=== PATIENT | male | born 1960 | race Caucasian/White ===

== ENCOUNTER 2018-11-05 11:20 | Observation (INO) | payer BC ==
[2018-11-05] MEDS ORDERED: NACHLORIDE 0.45% 1,000 ML IV SCH (12:00)
[2018-11-05] MEDS ORDERED: POLYETHYL GLY 3350 17 GM/DOSE PO PRN (12:00)
[2018-11-05] MEDS ORDERED: ONDANSETRON 4 MG (ODT) TAB PO PRN (12:00)
[2018-11-05] MEDS ORDERED: LOPERAMIDE HCL 2 MG CAPSULE PO PRN (12:00)
[2018-11-05] MEDS ORDERED: ACETAMINOPHEN 325 MG TABLET PO PRN (12:00)
[2018-11-05] MEDS ORDERED: DIPHENHYDRAMINE 25 MG TAB/CAP PO PRN (12:00)
[2018-11-05 12:35] LABS: Absolute Lymphocytes (CBC) 1.1 K/uL (0.7-4.9); Absolute Monocytes 1.1 K/uL (0.1-1.3); Absolute Neutrophil 12.5 K/uL (1.8-8.0); Basophils % 0.4 % (0-1.3); Hematocrit 40.2 % (39.6-49.0); Lymphocytes % 7.5 % (15.3-44.8); MPV 9.1 fL (7.6-11.3); Monocytes % 7.7 % (3.3-12.3); RBC Red Blood Cell Count 4.26 M/uL (4.33-5.43)
[2018-11-05] MEDS: ONDANSETRON 4 MG/2 ML VIAL IV PRN ×2 (12:41→18:29)
[2018-11-05] MEDS: METRONIDAZOLE 500mg IVPB 500 MG/100 ML BAG IV SCH ×2 (12:41→20:00)
[2018-11-05 12:44] LABS: Protime INR 1.13
[2018-11-05 12:50] VITALS: BMI 36.1
[2018-11-05 13:30] LABS: Bilirubin Direct 0.1 mg/dL (0-0.2); Bilirubin Total 0.6 mg/dL (0.2-1.0); Phosphorus 4.7 mg/dL (2.5-4.9); Potassium 3.9 mmol/L (3.5-5.1); Protein, Total 6.9 g/dL (6.4-8.2); Thyroid Stimulating Hormone 1.59 uIU/mL (0.360-3.740)
[2018-11-05 13:35] LABS: Blood Morphology Comment NOTED (NOT SEEN); Platelet Estimate ADEQ; Polychromasia 1+
[2018-11-05 14:41] LABS: Urine Appearance CLEAR; Urine Bilirubin NEGATIVE (NEG); Urine Blood NEGATIVE (NEG); Urine Color YELLOW; Urine Glucose NEGATIVE (NEG); Urine Protein NEGATIVE (NEG); Urine Specific Gravity 1.015 (1.005-1.030); Urine Urobilinogen 0.2 mg/dL (0.2-1.0)
--- NOTE | 2018-11-05 14:44 | RAD REPORT ---
EXAM DESCRIPTION: CT - Abdomen Pelvis Wo Contrast - 11/05/2018 2:21 pm CLINICAL HISTORY: Abdominal pain with vomiting COMPARISON: None TECHNIQUE: Computed axial tomography of the abdomen and pelvis was obtained. IV was not requested. O ral contrast was given. Coronal reconstructions performed. All CT scans are performed using dose optimization technique as appropriate and may include automated exposure control or mA/KV adjustment according to patient size. FINDINGS: The evaluation of solid organs and vessels is limited secondary to the lack of contrast a dministration. The liver, spleen, pancreas, and kidneys appear grossly normal. Hypertrophy of the adrenal glands. The appendix is normal. There is no evidence of diverticulitis. The wall of the sigmoid colon is moderately thickened. Mild thickening of the wall of the rectum, tra nsverse and descending colon. IMPRESSION: Mild to moderate colitis . Exam discussed with Dr. Mayen
[2018-11-05 14:47] LABS: Urine Microscopic Reflex NO UMIC
--- NOTE | 2018-11-05 14:48 | RAD REPORT ---
EXAM DESCRIPTION: Ochoa Álvarez (2 Views)11/05/2018 2:40 pm CLINICAL HISTORY: Abdominal pain COMPARISON: 2012 FINDINGS: The lungs appear clear of acute infiltrate. The heart is normal size Calcified granuloma is present within the left lower lobe IMPRESSION: No acute abnormalities displayed
[2018-11-05] MEDS ORDERED: POTASSIUM CL SA 10 MEQ TAB PO ONE (17:38)
[2018-11-05] MEDS: NA CHLORIDE 0.9% 1,000 ML IV SCH (18:01)
[2018-11-05] MEDS: HYDROMORPHONE HCL 1 MG/ML INJ IV PRN (19:59)
[2018-11-05] MEDS: CIPROFLOXACIN 400mg IV 400 MG/200 ML BAG IV SCH (20:00)
[2018-11-06 01:20] VITALS: O2SAT 95
[2018-11-06] MEDS: HYDROMORPHONE HCL 1 MG/ML INJ IV PRN ×2 (04:55→09:36)
--- NOTE | 2018-11-06 05:58 | EKG ---
Test Date: 2018-11-05 Test Time: 12:28:07 Service Dog Trainer: THOMAS MEASUREMENT RESULTS: Intervals: Rate: 73 CA: 210 QRSD: 140 QT: 444 QTc: 489 [place]: P: 72 CA: 210 QRS: 108 T: 50 INTERPRETIVE STATEMENTS: Sinus rhythm with 1st degree AV block Right bundle branch block Abnormal ECG No previous ECG available for comparison Electronically Signed On 11-06-18 05:57:59 CDT by Pierre Reardon
[2018-11-06 06:14] LABS: Absolute Monocytes 0.6 K/uL (0.1-1.3); Absolute Neutrophil 4.8 K/uL (1.8-8.0); Basophils % 0.8 % (0-1.3); Eosinophils % 2.2 % (0-4.4); Hematocrit 37.2 % (39.6-49.0); Lymphocytes % 15.5 % (15.3-44.8); MPV 9.1 fL (7.6-11.3)
[2018-11-06 06:32] LABS: Potassium 3.7 mmol/L (3.5-5.1)
[2018-11-06] MEDS ORDERED: ALBUTEROL SULFATE IN PRN (06:50)
[2018-11-06] MEDS ORDERED: IPRATROPIUM IN PRN (06:50)
[2018-11-06] MEDS ORDERED: lamoTRIgine 100 MG TAB PO SCH (09:00)
[2018-11-06] MEDS ORDERED: BISOPROLOL/HCTZ 5/6.25MG TAB PO SCH (09:00)
[2018-11-06] MEDS ORDERED: HCTZ PO SCH (09:00)
[2018-11-06] MEDS ORDERED: CITALOPRAM 10 MG TABLET PO SCH (09:00)
[2018-11-06] MEDS ORDERED: ENOXAPARIN 40 MG/0.4 ML SQ SCH (09:00)
[2018-11-06] MEDS ORDERED: MODAFINIL 100 MG TAB PO SCH (09:00)
[2018-11-06] MEDS ORDERED: BISOPROLOL FUMARATE PO SCH (09:00)
[2018-11-06] MEDS ORDERED: lamoTRIgine 25 MG TAB PO SCH (09:00)
[2018-11-06] MEDS ORDERED: POTASSIUM CL SA 10 MEQ TAB PO ONE (09:00)
[2018-11-06] MEDS: NA CHLORIDE 0.9% 1,000 ML IV SCH (09:22)
[2018-11-06] MEDS: CIPROFLOXACIN 400mg IV 400 MG/200 ML BAG IV SCH (09:22)
[2018-11-06] MEDS: METRONIDAZOLE 500mg IVPB 500 MG/100 ML BAG IV SCH (09:22)
--- NOTE | 2018-11-06 13:02 | P.DS ---
Admission Date: 11/05/18 Discharge Date: 11/06/18 Disposition: ROUTINE DISCHARGE Discharge Condition: FAIR Hospital Course: MR. MAYFIELD IS DOING GREAT. HE WANTS TO GO HOME. HIS LAB IS NORMAL NOW. C DIFF IS NEGATIVE. HE IS STABLE TO GO HOME. Vital Signs/Physical Exam: Temp Pulse Resp BP Pulse Ox 96.7 F L 77 16 120/51 L 91 11/06/18 08:00 11/06/18 09:20 11/06/18 08:00 11/06/18 09:20 11/06/18 08:00 Laboratory Data at Discharge: WBC 6.7 K/uL (4.3-10.9) D 11/06/18 05:40 Hgb 13.0 g/dL (13.6-17.9) L 11/06/18 05:40 Hct 37.2 % (39.6-49.0) L 11/06/18 05:40 Plt Count 204 K/uL (152-406) D 11/06/18 05:40 PT 13.3 SECONDS (9.5-12.5) H 11/05/18 12:15 INR 1.13 11/05/18 12:15 APTT 32.3 SECONDS (24.3-36.9) 11/05/18 12:15 Sodium 132 mmol/L (136-145) L 11/06/18 05:40 Potassium 3.7 mmol/L (3.5-5.1) 11/06/18 05:40 BUN 15 mg/dL (7-18) 11/06/18 05:40 Creatinine 1.19 mg/dL (0.55-1.3) 11/06/18 05:40 Glucose 158 mg/dL (74-106) H 11/06/18 05:40 Phosphorus 4.7 mg/dL (2.5-4.9) 11/05/18 12:15 Magnesium 2.0 mg/dL (1.8-2.4) 11/06/18 05:40 Total Bilirubin 0.6 mg/dL (0.2-1.0) 11/05/18 12:15 AST 52 U/L (15-37) H 11/05/18 12:15 ALT 103 U/L (12-78) H 11/05/18 12:15 Alkaline Phosphatase 62 U/L (45-117) 11/05/18 12:15 Home Medications: Bisoprolol Fumarate/Hctz [Bisoprolol-Hctz 5-6.25 mg Tab] 1 tab PO DAILY Buspirone HCl 15 mg PO TID PRN 11/05/18 Citalopram [Celexa*] 20 mg PO BID 11/05/18 Ipratropium/Albuterol Sulfate [Combivent Respimat 20-100 Mcg] 1 puff IN QID PRN 11/05/18 Lamotrigine [Lamictal] 25 mg PO DAILY 11/05/18 Losartan Potassium [Cozaar*] 50 mg PO DAILY 11/05/18 Modafinil [Provigil] 300 mg PO DAILY 11/05/18 Simvastatin 40 mg PO BEDTIME 11/05/18 Trazodone HCl 100 mg PO BEDTIME PRN 11/05/18 Ciprofloxacin HCl [Cipro 250 MG Tablet*] 250 mg PO BID #14 tab 11/06/18 metroNIDAZOLE [Flagyl] 250 mg PO Q8H #21 tablet 11/06/18 New Medications: Ciprofloxacin HCl [Cipro 250 MG Tablet*] 250 mg PO BID #14 tab metroNIDAZOLE [Flagyl] 250 mg PO Q8H #21 tablet Followup: Domenico Mayen MD [Primary Care Provider] -
[2018-11-06 13:08] VITALS: BP 109/56; TEMP 96.3
[2018-11-06] MEDS ORDERED: TRAZODONE 50 MG TABLET PO PRN (21:00)
== END 2018-11-06 13:18 | disposition home or self-care (01) ==
LOC: 4TH 11:24
PROVIDERS: ADMIT Internal Medicine; ATTEND Internal Medicine
DX: R10.9 Unspecified abdominal pain (principal); R14.0 Abdominal distension (gaseous); I10 Essential (primary) hypertension; J44.9 Chronic obstructive pulmonary disease, unspecified; F17.210 Nicotine dependence, cigarettes, uncomplicated; Z88.0 Allergy status to penicillin
CPT/HCPCS: 36415; 71046; 74176; 80048; 80076; 81003; 82306; 82607; 83735; 84100; 84443; 85025; 85610; 85730; 87086; 87088; 87493; 93005; G0378; J0744; J1170; J1650; J2405; J7030

== ENCOUNTER 2019-03-26 10:37 | Emergency (ER) | payer BC ==
--- OUTSIDE RECORDS SUMMARY | 2019-03-26 10:40 | XMS REPORT ---
:1960 [facility] Address [address] [place] [address] Dr. Hamm [address] [place] [id number] Care Team Providers Name Role Phone Unavailable Unavailable Unavailable Problems This patient has no known problems. Allergies, Adverse Reactions, Alerts This patient has no known allergies or adverse reactions. Medications This patient has no known medications.
[2019-03-26] MEDS ORDERED: OXYMETAZOLINE HCL 0.05% 15ML NAS ONE (11:34)
[2019-03-26] MEDS ORDERED: CEPHALEXIN 250 MG CAP ONE (11:34)
--- NOTE | 2019-03-26 11:54 | EDPHYS ---
Physician Documentation [facility] Name: Manny Dan Age: 58 yrs Sex: Male : 1960 Arrival Date: 03/26/2019 Time: 10:40 Bed 15 Private MD: ED Physician Edenilson Lai HPI: 03/26 11:18 This 58 yrs old Male presents to ER via Ambulatory with complaints of Nose goldy Bleed. 11:18 The patient presents with a nose bleed, that is apparently anterior, occurred from an [facility] unknown cause. Onset: The symptoms/episode began/occurred 2 day(s) ago. Modifying factors: The symptoms are alleviated by nothing. the symptoms are aggravated by nothing. Associated signs and symptoms: The patient has no apparent associated signs or symptoms. Severity of symptoms: At their worst the symptoms were mild moderate in the emergency department the symptoms are unchanged. The patient has not experienced similar symptoms in the past. Historical: - Allergies: 10:42 PENICILLINS; hj - PMHx: 10:42 Hypertension; Hyperlipidemia; hj - PSHx: 10:42 hand; back; hj - Immunization history:: Adult Immunizations up to date. - Social history:: Smoking status: Patient/guardian denies using tobacco. - Family history:: not pertinent. - Ebola Screening: : Patient negative for fever greater than or equal to 101.5 degrees Fahrenheit, and additional compatible Ebola Virus Disease symptoms. ROS: 11:18 Constitutional: Negative for fever, chills, and weight loss, Eyes: Negative for injury, goldy pain, redness, and discharge, Neck: Negative for injury, pain, and swelling, Cardiovascular: Negative for chest pain, palpitations, and edema, Respiratory: Negative for shortness of breath, cough, wheezing, and pleuritic chest pain, Abdomen/GI: Negative for abdominal pain, nausea, vomiting, diarrhea, and constipation, Back: Negative for injury and pain, : Negative for injury, bleeding, discharge, and swelling, MS/Extremity: Negative for injury and deformity, Skin: Negative for injury, rash, and discoloration, Neuro: Negative for headache, weakness, numbness, tingling, and seizure, Psych: Negative for depression, anxiety, suicide ideation, homicidal ideation, and hallucinations, Allergy/Immunology: Negative for hives, rash, and allergies, Endocrine: Negative for neck swelling, polydipsia, polyuria, polyphagia, and marked weight changes, Hematologic/Lymphatic: Negative for swollen nodes, abnormal bleeding, and unusual bruising. 11:18 ENT: Positive for nose bleed. Exam: 11:18 Constitutional: This is a well developed, well nourished patient who is awake, alert, goldy and in no acute distress. Head/Face: Normocephalic, atraumatic. Eyes: Pupils equal round and reactive to light, extra-ocular motions intact. Lids and lashes normal. Conjunctiva and sclera are non-icteric and not injected. Cornea within normal limits. Periorbital areas with no swelling, redness, or edema. Neck: Trachea midline, no thyromegaly or masses palpated, and no cervical lymphadenopathy. Supple, full range of motion without nuchal rigidity, or vertebral point tenderness. No Meningismus. Chest/axilla: Normal chest wall appearance and motion. Nontender with no deformity. No lesions are appreciated. Cardiovascular: Regular rate and rhythm with a normal S1 and S2. No gallops, murmurs, or rubs. Normal PMI, no JVD. No pulse deficits. Respiratory: Lungs have equal breath sounds bilaterally, clear to auscultation and percussion. No rales, rhonchi or wheezes noted. No increased work of breathing, no retractions or nasal flaring. Abdomen/GI: Soft, non-tender, with normal bowel sounds. No distension or tympany. No guarding or rebound. No evidence of tenderness throughout. Back: No spinal tenderness. No costovertebral tenderness. Full range of motion. Male : Normal genitalia with no discharge or lesions. Skin: Warm, dry with normal turgor. Normal color with no rashes, no lesions, and no evidence of cellulitis. MS/ Extremity: Pulses equal, no cyanosis. Neurovascular intact. Full, normal range of motion. Neuro: Awake and alert, GCS 15, oriented to person, place, time, and situation. Cranial nerves II-XII grossly intact. Motor strength 5/5 in all extremities. Sensory grossly intact. Cerebellar exam normal. Normal gait. Psych: Awake, alert, with orientation to person, place and time. Behavior, mood, and affect are within normal limits. 11:18 ENT: Nose: Nasal mucosa: edematous, erythematous, Turbinates: are swollen bilaterally, abrasion, is not appreciated, bleeding, is not appreciated, clotted blood, is not appreciated, nasal drainage, that is minimal, a foreign body, is not appreciated, laceration, is not appreciated. Vital Signs: 10:42 BP 140 / 71; Pulse 79; Resp 18; Temp 97.6(TE); Pulse Ox 98% on R/A; Weight 95.25 kg; hj Height 5 ft. 5 in. (165.10 cm); 11:40 BP 138 / 73; Pulse 81; Resp 18; Temp 97.9(O); Pulse Ox 99% on R/A; Pain 0/10; rb1 12:35 BP 112 / 68; Pulse 66; Resp 19; Temp 98.0(O); Pulse Ox 96% on R/A; Pain 0/10; rb1 10:42 Body Mass Index 34.95 (95.25 kg, 165.10 cm) MDM: 10:44 Patient medically screened. [facility] 11:20 Data reviewed: vital signs, nurses notes, lab test result(s). [facility] 03/26 11:21 Order name: CBC with Diff; Complete Time: 12:26 [facility] 03/26 11:21 Order name: Comprehensive Metabolic Panel; Complete Time: 12:26 [facility] 03/26 11:21 Order name: PT-INR; Complete Time: 12:26 [facility] 03/26 11:21 Order name: Ptt, Activated; Complete Time: 12:26 [facility] Administered Medications: 11:35 Drug: Afrin Drops (0.05 %) 1 sprays Route: Intranasal; Site: both nares; [facility] 11:35 Drug: KeFLEX 500 mg Route: PO; rb1 12:00 Follow up: Response: No adverse reaction rb1 11:35 Drug: Neosporin Ointment 1 application Route: Topical; Site: affected area; rb1 12:31 Drug: Norvasc 2.5 mg Route: PO; rb1 12:39 Follow up: Response: Medication administered at discharge. [facility] Disposition: 03/26/19 11:52 Discharged to Home. Impression: Epistaxis, Essential (primary) hypertension, Obesity, unspecified, Tobacco abuse counseling, Tobacco use. - Condition is Stable. - Discharge Instructions: Nosebleed, Adult, Hypertension, Obesity, Adult, Smoking Hazards, Hypertension, [id number]. - Prescriptions for Norvasc 2.5 mg Oral tablet - take 1 tablet by ORAL route once daily; 30 tablet. Keflex 500 mg Oral Capsule - take 1 capsule by ORAL route every 6 hours for 7 days; 28 capsule. Afrin (oxymetazoline) 0.05 % Nasal Aerosol, Fyffe - spray 2 spray by INTRANASAL route 2 times per day; 1 Container. - Medication Reconciliation Form, Thank You Letter, Antibiotic Education, Prescription Opioid Use form. - Follow up: Private Physician; When: 2 - 3 days; Reason: Recheck today's complaints, Continuance of care, Re-evaluation by your physician. Follow up: Anushka Sorensen; When: 2 - 3 days; Reason: Recheck today's complaints, Re-evaluation by your physician. Follow up: Domenico Mayen MD; When: 2 - 3 days; Reason: Recheck today's complaints, Continuance of care, Re-evaluation by your physician. - Problem is new. - Symptoms have improved. Signatures: Dispatcher [employer] EDMS Edenilson Lai MD MD cha Joaquin, Henry, RN RN Karishma Vaughan RN RN rb1 Corrections: (The following items were deleted from the chart) 12:40 11:52 03/26/2019 11:52 Discharged to Home. Impression: Epistaxis; Essential (primary) rb1 hypertension; Obesity, unspecified; Tobacco abuse counseling; Tobacco use. Condition is Stable. Discharge Instructions: Nosebleed, Adult, Hypertension, Obesity, Adult, Smoking Hazards, Hypertension, [id number]. Prescriptions for Norvasc 2.5 mg Oral tablet - take 1 tablet by ORAL route once daily; 30 tablet, Keflex 500 mg Oral Capsule - take 1 capsule by ORAL route every 6 hours for 7 days; 28 capsule, Afrin (oxymetazoline) 0.05 % Nasal Aerosol, Fyffe - spray 2 spray by INTRANASAL route 2 times per day; 1 Container. and Forms are Medication Reconciliation Form, Thank You Letter, Antibiotic Education, Prescription Opioid Use. Follow up: Private Physician; When: 2 - 3 days; Reason: Recheck today's complaints, Continuance of care, Re-evaluation by your physician. Follow up: Anushka Sorensen; When: 2 - 3 days; Reason: Recheck today's complaints, Re-evaluation by your physician. Follow up: Domenico Mayen; When: 2 - 3 days; Reason: Recheck today's complaints, Continuance of care, Re-evaluation by your physician. Problem is new. Symptoms have improved. goldy
--- NOTE | 2019-03-26 11:54 | ER ---
Nurse's Notes [facility] Name: Manny Dan Age: 58 yrs Sex: Male : 1960 Arrival Date: 03/26/2019 Time: 10:40 Bed 15 Private MD: Diagnosis: Epistaxis;Essential (primary) hypertension;Obesity, unspecified;Tobacco abuse counseling;Tobacco use Presentation: 03/26 10:40 Presenting complaint: Patient states: i started having this on and off nose bleed hj episode since last night, if i put pressure, on my nose, it stops like in minutes and then it comes again an now the blood is dripping on the back of my throat; hx if nose bleed;. Transition of care: patient was not received from another setting of care. Onset of symptoms was March 26, 2019. Risk Assessment: Do you want to hurt yourself or someone else? Patient reports no desire to harm self or others. Initial Sepsis Screen: Does the patient meet any 2 criteria? No. Patient's initial sepsis screen is negative. Does the patient have a suspected source of infection? No. Patient's initial sepsis screen is negative. Care prior to arrival: None. 10:40 Method Of Arrival: Ambulatory hj 10:40 Acuity: SRAVANTHI 4 hj Triage Assessment: 10:46 Pain: Denies pain. rb1 Historical: - Allergies: 10:42 PENICILLINS; hj - PMHx: 10:42 Hypertension; Hyperlipidemia; hj - PSHx: 10:42 hand; back; hj - Immunization history:: Adult Immunizations up to date. - Social history:: Smoking status: Patient/guardian denies using tobacco. - Family history:: not pertinent. - Ebola Screening: : Patient negative for fever greater than or equal to 101.5 degrees Fahrenheit, and additional compatible Ebola Virus Disease symptoms. Screenin:46 Abuse screen: Denies threats or abuse. Nutritional screening: No deficits noted. rb1 Tuberculosis screening: No symptoms or risk factors identified. Fall Risk None identified. Assessment: 10:46 General: Appears in no apparent distress. comfortable, Behavior is calm, cooperative, rb1 Denies fever. Neuro: Level of Consciousness is awake, alert, obeys commands, Oriented to person, place, time, situation. Cardiovascular: Capillary refill < 3 seconds is brisk in bilateral fingers. Respiratory: Airway is patent Respiratory effort is even, unlabored, Respiratory pattern is regular, symmetrical. Respiratory:. GI: Reports nausea. : No signs and/or symptoms were reported regarding the genitourinary system. EENT: Reports nasal discharge that is bloody reports his nose started bleeding around 2030 last night. He has a history of this happening. Derm: Skin is pink, warm \T\ dry. Musculoskeletal: Range of motion: intact in all extremities. 11:45 Reassessment: Patient appears in no apparent distress at this time. Pt. reports that rb1 the bleeding has stopped. Patient denies pain at this time. 12:35 Reassessment: Patient appears in no apparent distress at this time. Patient and/or rb1 family updated on plan of care and expected duration. Pain level reassessed. Patient is alert, oriented x 3, equal unlabored respirations, skin warm/dry/pink. Patient denies pain at this time. Vital Signs: 10:42 BP 140 / 71; Pulse 79; Resp 18; Temp 97.6(TE); Pulse Ox 98% on R/A; Weight 95.25 kg; Height 5 ft. 5 in. (165.10 cm); 11:40 BP 138 / 73; Pulse 81; Resp 18; Temp 97.9(O); Pulse Ox 99% on R/A; Pain 0/10; rb1 12:35 BP 112 / 68; Pulse 66; Resp 19; Temp 98.0(O); Pulse Ox 96% on R/A; Pain 0/10; rb1 10:42 Body Mass Index 34.95 (95.25 kg, 165.10 cm) ED Course: 10:40 Patient arrived in ED. hj 10:42 Triage completed. hj 10:44 Edenilson Lai MD is Attending Physician. goldy 10:46 Patient has correct armband on for positive identification. Bed in low position. Call rb1 light in reach. Side rails up X 1. Pulse ox on. NIBP on. 10:46 Arm band placed on right wrist. rb1 10:48 Karishma Marlow, ROSELIA is Primary Nurse. rb1 11:50 Inserted saline lock: 22 gauge in left antecubital area, using aseptic technique. Blood rb1 collected. 11:52 Anushka Sorensen MD is Referral Physician. goldy 11:52 Domenico Mayen MD is Referral Physician. goldy 12:40 No provider procedures requiring assistance completed. IV discontinued, intact, rb1 bleeding controlled, No redness/swelling at site. Pressure dressing applied. Administered Medications: 11:35 Drug: Afrin Drops (0.05 %) 1 sprays Route: Intranasal; Site: both nares; rb1 11:35 Drug: KeFLEX 500 mg Route: PO; rb1 12:00 Follow up: Response: No adverse reaction rb1 11:35 Drug: Neosporin Ointment 1 application Route: Topical; Site: affected area; rb1 12:31 Drug: Norvasc 2.5 mg Route: PO; rb1 12:39 Follow up: Response: Medication administered at discharge. rb1 Outcome: 11:52 Discharge ordered by . [facility] 12:40 Patient left the ED. rb1 12:40 Discharged to home ambulatory. rb1 12:40 Condition: stable 12:40 Discharge instructions given to patient, Instructed on discharge instructions, follow up and referral plans. medication usage, Demonstrated understanding of instructions, follow-up care, medications, Prescriptions given X 3. Signatures: Edenilson Lai MD MD cha Joaquin, Henry, RN RN Karishma Marlow RN RN [facility]
[2019-03-26 12:02] LABS: Absolute Lymphocytes (CBC) 1.4 K/uL (0.7-4.9); Basophils % 0.8 % (0-1.3); Hematocrit 40.8 % (39.6-49.0); Lymphocytes % 14.5 % (15.3-44.8); MPV 8.9 fL (7.6-11.3); RBC Red Blood Cell Count 4.25 M/uL (4.33-5.43)
[2019-03-26 12:07] LABS: Protime INR 0.88
[2019-03-26 12:16] LABS: Albumin 4.2 g/dL (3.4-5.0); Bilirubin Total 0.4 mg/dL (0.2-1.0); Protein, Total 7.7 g/dL (6.4-8.2)
[2019-03-26] MEDS ORDERED: AMLODIPINE 5 MG TAB ONE (12:31)
[2019-03-26 12:50] VITALS: BP 140/71; TEMP 97.6; O2SAT 98
== END 2019-03-26 12:40 | disposition home or self-care (01) ==
LOC: ER 10:37
DX: R04.0 Epistaxis (principal); I10 Essential (primary) hypertension; E66.9 Obesity, unspecified; Z68.34 Body mass index [BMI] 34.0-34.9, adult; Z71.6 Tobacco abuse counseling; Z72.0 Tobacco use; E78.5 Hyperlipidemia, unspecified; Z88.0 Allergy status to penicillin
CPT/HCPCS: 36415; 80053; 85025; 85610; 85730; 99284

== ENCOUNTER 2024-06-21 15:40 | Emergency (ER) | payer OTHER ==
[2024-06-21] MEDS ORDERED: ONDANSETRON 4 MG/2 ML VIAL ONE (18:39)
[2024-06-21] MEDS ORDERED: MORPHINE 4 MG/ML SYR ONE (18:40)
[2024-06-21] MEDS ORDERED: NA CHLORIDE 0.9% 500 ML ONE (18:40)
[2024-06-21 18:43] LABS: Absolute Basophils 0.1 K/uL (0-0.5); Absolute Eosinophils 0.3 K/uL (0-0.5); Absolute Lymphocytes (CBC) 1.1 K/uL (0.7-4.9); Absolute Monocytes 0.9 K/uL (0.1-1.3); Absolute Neutrophil 10.5 K/uL (1.8-8.0); Basophils % 0.7 % (0-1.3); Eosinophils % 2.6 % (0-4.4); Hematocrit 48.3 % (39.6-49.0); Hemoglobin 16.2 g/dL (13.6-17.9); Lymphocytes % 8.8 % (15.3-44.8); MCH 32.4 pg (27.0-35.0); MCHC 33.4 g/dL (32.0-36.0); MCV 96.8 fL (80-100); Monocytes % 7.1 % (3.3-12.3); Neutrophils % 80.8 % (41.7-73.7); Nucleated Red Blood Cells % 0.2 % (0-0); Platelets 250 thou/uL (152-406); RBC Red Blood Cell Count 4.99 M/uL (4.33-5.43); Red Cell Distribution Width 13.8 % (12.1-15.2)
[2024-06-21 19:06] LABS: Albumin 3.6 g/dL (3.4-5.0); Albumin/Globulin Ratio 0.9 (1.1-1.8); Anion Gap 8.3 mEq/L (5.0-15.0); Bilirubin Total 0.7 mg/dL (0.2-1.0); Globulin 4.2 g/dL (2.3-3.5); Potassium 4.3 mEq/L (3.5-5.1); Protein, Total 7.8 g/dL (6.4-8.2)
[2024-06-21 19:17] LABS: Specific Gravity 1.015 (1.005-1.030); Sqamous Epithelial None Seen /HPF (None Seen); Urine Bacteria None Seen /HPF (<20); Urine Bilirubin NEGATIVE (Negative); Urine Blood Trace (Negative); Urine Clarity Clear (Clear); Urine Color Light-Yellow (Yellow); Urine Culture Reflex Order NOT NEEDED; Urine Glucose NEGATIVE (Negative); Urine Ketones 1+ (Negative); Urine Microscopic Reflex YN ORDER UMIC; Urine Nitrite NEGATIVE (Negative); Urine Protein NEGATIVE (Negative); Urine RBC <5 /HPF (None Seen); Urine Urobilinogen Normal (Normal); Urine WBC <5 /HPF (<5)
--- NOTE | 2024-06-21 19:53 | RAD REPORT ---
EXAMINATION: CT ABDOMEN AND PELVIS WITH CONTRAST CLINICAL INDICATION: Male, 64 years old.left side abdomen pain TECHNIQUE: CT abdomen and pelvis was performed, after the administration of IV contrast, [facility]. Axial, sagittal and coronal reconstructions were obtained. One or more of the following dose reduction techniques were used: Automated exposure control, adjustment of the mA and/o r kV according to patient size, and/or iterative reconstruction. Unless otherwise specified, incidental findings do not require dedicated imaging follow-up. [id number]. COMPARISON: 11/05/2018 FINDINGS: LOWER CHEST: Calcified left lower lobe nodule. LIVER: Normal in size and contour. No focal lesion. GALLBLADDER/BILE DUCT: No biliary ductal dilatation.? PANCREAS: No significant abnormality. SPLEEN: Normal size. No focal lesion. ADRENALS: Bilateral adrenal thickening without mass. KIDNEYS AND URETERS: Normal size and contour. No hydronephrosis. Bilateral renal lesions which are ei ther benign in appearance or too small to accurately characterize but statistically benign. GASTROINTESTINAL TRACT: Mild stranding present at the mid sigmoid colon consistent with nonperforated sigmoid diverticulitis. Normal appendix. PERITONEUM: No ascites. Fat-containing left inguinal hernia. Small fat-containing umbilical hernia. LYMPH NODES: No lymphadenopathy. ABDOMINAL AORTA AND OTHER VESSELS: Normal caliber aorta and IVC. Atherosclerosis. URINARY BLADDER: Circumferential bladder wall thickening. REPRODUCTIVE ORGANS: No pathologic process MUSCULOSKELETAL: No acute or suspicious osseous abnormality. Remote left-sided rib fractures. ADDITIONAL FINDINGS: None. IMPRESSION: Nonperforated diverticulitis of the mid sigmoid colon. Nonspecific circumferential bladder wall thickening. Suggest correlation with urinalysis to exclude c ystitis. This may be reactive to the adjacent sigmoid inflammatory changes.
[2024-06-21] MEDS ORDERED: CIPROFLOXACIN HCL 500 MG TAB ONE (20:18)
[2024-06-21] MEDS ORDERED: METRONIDAZOLE 500mg IVPB 500 MG/100 ML BAG IV ONE (20:18)
--- NOTE | 2024-06-21 20:30 | ER ---
Nurse's Notes [facility] Name: Manny Dan Age: 64 yrs Sex: Male : 1960 Arrival Date: 06/21/2024 Time: 15:40 Bed 19 Private MD: Diagnosis: Diverticulitis of large intestine without perforation or abscess without bleeding Presentation: 06/21 16:13 Acuity: SRAVANTHI 3 aa5 16:13 Chief complaint: Patient states: LLQ pain that began 2 days ago, hx of diverticulitis. aa5 Also reports constipation. Coronavirus screen: At this time, the client does not indicate any symptoms associated with coronavirus-19. Ebola Screen: Patient denies travel to an Ebola-affected area in the 21 days before illness onset. Initial Sepsis Screen: Does the patient meet any 2 criteria? No. Patient's initial sepsis screen is negative. Does the patient have a suspected source of infection? No. Patient's initial sepsis screen is negative. Risk Assessment: Do you want to hurt yourself or someone else? Patient reports no desire to harm self or others. Onset of symptoms was May 2024. 16:13 Method Of Arrival: Ambulatory aa5 Historical: - Allergies: 16:13 PENICILLINS; aa5 - PMHx: 16:13 Hyperlipidemia; Hypertension; Diverticulitis; Right Bicep tear; Left carotid blockage; aa5 - Immunization history:: Adult Immunizations unknown. - Infectious Disease History:: Denies. - Social history:: Smoking status: Patient reports the use of cigarette tobacco products. Screenin:14 [facility] ED Fall Risk Assessment (Adult) History of falling in the last 3 months, ll1 including since admission No falls in past 3 months (0 pts) Confusion or Disorientation No (0 pts) Intoxicated or Sedated No (0 pts) Impaired Gait No (0 pts) Mobility Assist Device Used No (0 pt) Altered Elimination No (0 pt) Score/Fall Risk Level 0 - 2 = Low Risk Maintained a safe environment, Hourly rounding (assess needs \T\ fall precautionary measures) done. Abuse screen: Denies threats or abuse. Nutritional screening: No deficits noted. Tuberculosis screening: No symptoms or risk factors identified. Assessment: 18:14 General: Appears uncomfortable, Behavior is calm, cooperative, appropriate for age. ll1 Pain: Complains of pain in abdomen Quality of pain is described as aching, crampy. GI: Reports lower abdominal pain, constipation. 18:46 Reassessment: No changes from previously documented assessment. Patient and/or family ll1 updated on plan of care and expected duration. Pain level reassessed. Patient is alert, oriented x 3, equal unlabored respirations, skin warm/dry/pink. 19:03 Reassessment: No changes from previously documented assessment. Patient and/or family ll1 updated on plan of care and expected duration. Pain level reassessed. Patient is alert, oriented x 3, equal unlabored respirations, skin warm/dry/pink. 19:13 General: Appears in no apparent distress. Behavior is calm, cooperative. Neuro: Level al5 of Consciousness is awake, alert, obeys commands, Oriented to person, place, time, situation. Cardiovascular: Capillary refill < 3 seconds Patient's skin is warm and dry. Respiratory: Airway is patent Respiratory effort is even, unlabored, Respiratory pattern is regular, symmetrical. GI: Bowel sounds present X 4 quads. Abd is soft X 4 quads Abdomen is tender to palpation in right lower quadrant and left lower quadrant c/o diverticulitis flare up. : No signs and/or symptoms were reported regarding the genitourinary system. EENT: No signs and/or symptoms were reported regarding the EENT system. Derm: Skin is intact, is healthy with good turgor, Skin is pink, warm \T\ dry. normal. Musculoskeletal: No signs and/or symptoms reported regarding the musculoskeletal system. 20:34 Reassessment: Patient appears in no apparent distress at this time. No changes from al5 previously documented assessment. Patient and/or family updated on plan of care and expected duration. Pain level reassessed. Patient is alert, oriented x 3, equal unlabored respirations, skin warm/dry/pink. discharge pending completion of IV infusion. 21:17 Reassessment: Patient and/or family updated on plan of care and expected duration. Pain tm6 level reassessed. Patient is alert, oriented x 3, equal unlabored respirations, skin warm/dry/pink. Vital Signs: 16:13 BP 127 / 69; Pulse 52; Resp 18 S; Temp 99.2(O); Pulse Ox 95% on R/A; Weight 74.84 kg aa5 (R); Height 5 ft. 5 in. (R); 19:14 BP 154 / 68; Pulse 63; Resp 16; Pulse Ox 95% on R/A; al5 19:30 BP 130 / 59; Pulse 72; Resp 18; Pulse Ox 94% on R/A; al5 21:16 BP 137 / 75; Pulse 59; Resp 19; Temp 99.1; Pulse Ox 94% on R/A; MAP 93 mmHg; Pain 0/10; tm6 16:13 Body Mass Index 27.46 (74.84 kg, 165.1 cm) aa5 21:16 Pain Scale: Adult tm6 ED Course: 15:45 Patient arrived in ED. mg5 16:04 Edenilson Fine PA is PHCP. cp 16:04 Charles Wu MD is Attending Physician. cp 16:13 Arm band placed on. aa5 16:16 Triage completed. aa5 18:11 Patient placed in an exam room, on a stretcher. ll1 18:14 Ashlyn Arias, RN is Primary Nurse. ll1 18:15 Provided Education on: ER procedures and process. ll1 18:35 Inserted saline lock: 22 gauge in left forearm, using aseptic technique. Blood ll1 collected. Flushed with 10 mL NS. 18:46 Patient has correct armband on for positive identification. Bed in low position. ll1 Cardiac monitoring not applicable on this patient. 19:14 No provider procedures requiring assistance completed. al5 19:47 CT Abd/Pelvis - IV Contrast Only In Process Unspecified. EDMS 21:17 IV discontinued, intact, bleeding controlled, No redness/swelling at site. Pressure tm6 dressing applied. Administered Medications: 18:44 Drug: Ondansetron IVP 4 mg IVP once; over 2 minutes Route: IVP; Site: left forearm; ll1 20:14 Follow up: Response: No adverse reaction; Nausea is decreased al5 18:44 Drug: NS 0.9% IV 500 ml IV at bolus once; to be given as a bolus over 60 minutes Route: ll1 IV; Rate: bolus; Site: left forearm; 21:18 Follow up: Response: No adverse reaction; IV Status: Completed infusion; IV Intake: tm6 500ml 18:45 Drug: morphine IVP or IV 4 mg IVP once over 4 mins {Note: RASS 0, pain 7/10.} Route: ll1 IVP; Infused Over: 4 mins; Site: left forearm; 20:14 Follow up: Response: No adverse reaction; Pain is decreased al5 20:22 Drug: metroNIDAZOLE IVPB 500 mg 100 ml IVPB once over 30 mins Volume: 100 ml; Route: al5 IVPB; Infused Over: 30 mins; Site: left antecubital; 21:13 Follow up: Response: No adverse reaction; IV Status: Completed infusion; IV Intake: al5 100ml 20:22 Drug: Ciprofloxacin PO 500 mg PO once Route: PO; al5 20:36 Follow up: Response: No adverse reaction al5 Medication: 18:15 VIS not applicable for this client. ll1 Intake: 21:13 IV: 100ml; Total: 100ml. al5 21:18 IV: 500ml; Total: 600ml. tm6 Outcome: 20:30 Discharge ordered by MD. cp 21:17 Discharged to home ambulatory, tm6 21:17 Condition: stable 21:17 Discharge instructions given to patient, Instructed on discharge instructions, follow up and referral plans. medication usage, Demonstrated understanding of instructions, follow-up care, medications, Prescriptions given X 4, 21:17 Patient left the ED. tm6 Signatures: Dispatcher [employer] EDMS Sweta Whitlock RN RN aa5 Edenilson Fine PA PA cp Lewis, Lynsay, RN RN ll1 Regla Cabral mg5 Jonny Cohn RN RN tm6 Mony Goyal RN RN al5 Corrections: (The following items were deleted from the chart) 16:15 16:13 PSHx: Jose Cruz Rotator cuff; aa5 aa5 16:16 16:13 74.84 kg Reported; Height 5 ft. 5 in. Reported; BMI: 27.4; aa5 aa5 20:35 20:34 Reassessment: Patient appears in no apparent distress at this time. No changes al5 from previously documented assessment. Patient and/or family updated on plan of care and expected duration. Pain level reassessed. Patient is alert, oriented x 3, equal unlabored respirations, skin warm/dry/pink. al5
--- NOTE | 2024-06-21 20:30 | EDPHYS ---
Physician Documentation [facility] Name: Manny Dan Age: 64 yrs Sex: Male : 1960 Arrival Date: 06/21/2024 Time: 15:40 Bed 19 Private MD: ED Physician Charles Wu HPI: 06/21 16:10 This 64 yrs old Male presents to ER via Unassigned with complaints of Abdominal Pain. cp 16:10 The patient presents with abdominal pain in the left lower quadrant. cp 16:10 Onset: The symptoms/episode began/occurred 2 day(s) ago. cp 16:10 Associated signs and symptoms: Pertinent positives: constipation, Pertinent negatives: cp blood in stools, diarrhea, dysuria, fever, testicular pain, vomiting. The symptoms are described as constant. Historical: - Allergies: 16:13 PENICILLINS; aa5 - PMHx: 16:13 Hyperlipidemia; Hypertension; Diverticulitis; Right Bicep tear; Left carotid blockage; aa5 - Immunization history:: Adult Immunizations unknown. - Infectious Disease History:: Denies. - Social history:: Smoking status: Patient reports the use of cigarette tobacco products. ROS: 16:15 Constitutional: Negative for body aches, chills, fever, poor PO intake, cp 16:15 Eyes: Negative for injury, pain, redness, and discharge, cp 16:15 ENT: Negative for drainage from ear(s), ear pain, sore throat, difficulty swallowing, difficulty handling secretions, 16:15 Cardiovascular: Negative for chest pain, 16:15 Respiratory: Negative for cough, shortness of breath, wheezing, 16:15 Abdomen/GI: Positive for abdominal pain, constipation, Negative for vomiting, diarrhea, 16:15 Neuro: Negative for altered mental status, dizziness, headache, weakness, 16:15 All other systems are negative, Exam: 16:20 Constitutional: The patient appears in no acute distress, alert, awake, cp non-diaphoretic, non-toxic, well developed, well nourished, uncomfortable, 16:20 Head/Face: Normocephalic, atraumatic. cp 16:20 Eyes: Periorbital structures: appear normal, Conjunctiva: normal, no exudate, no injection, Sclera: no appreciated abnormality, Lids and lashes: appear normal, bilaterally, 16:20 ENT: External ear(s): are unremarkable, Nose: is normal, Mouth: Lips: moist, Oral mucosa: pink and intact, moist, Posterior pharynx: Airway: no evidence of obstruction, patent, 16:20 Chest/axilla: Inspection: normal, 16:20 Cardiovascular: Rate: bradycardic, Rhythm: regular, Edema: is not appreciated, JVD: is not appreciated, 16:20 Respiratory: the patient does not display signs of respiratory distress, Respirations: normal, no use of accessory muscles, no retractions, labored breathing, is not present, Breath sounds: are clear throughout, no decreased breath sounds, no stridor, no wheezing, 16:20 Abdomen/GI: Inspection: abdomen appears normal, Bowel sounds: active, all quadrants, Palpation: soft, in all quadrants, moderate abdominal tenderness, in the left lower quadrant, rebound tenderness, is not appreciated, involuntary guarding, is not appreciated, 16:20 Back: CVA tenderness, is absent, Vital Signs: 16:13 BP 127 / 69; Pulse 52; Resp 18 S; Temp 99.2(O); Pulse Ox 95% on R/A; Weight 74.84 kg aa5 (R); Height 5 ft. 5 in. (R); 19:14 BP 154 / 68; Pulse 63; Resp 16; Pulse Ox 95% on R/A; al5 19:30 BP 130 / 59; Pulse 72; Resp 18; Pulse Ox 94% on R/A; al5 21:16 BP 137 / 75; Pulse 59; Resp 19; Temp 99.1; Pulse Ox 94% on R/A; MAP 93 mmHg; Pain 0/10; tm6 16:13 Body Mass Index 27.46 (74.84 kg, 165.1 cm) aa5 21:16 Pain Scale: Adult tm6 MDM: 16:04 Medical Screening Exam initiated 18:00 Differential diagnosis: appendicitis, bowel obstruction, cholecystitis, Cholelithiasis, cp diverticulitis, non-specific abd pain, pancreatitis, Pyelonephritis, Ureterolithiasis, urinary tract infection. 20:30 Data reviewed: vital signs, nurses notes, lab test result(s), radiologic studies, CT cp scan, and as a result, I will discharge patient. 20:30 I considered the following discharge prescriptions or medication management in the emergency department Medications were administered in the Emergency Department. See MAR. Care significantly affected by the following chronic conditions: Hypertension. 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 Response to treatment: the patient's symptoms have markedly improved after treatment, and as a result, I will discharge patient. Special discussion: Based on the patient's Hx, exam, and Dx evaluation, there is no indication for emergent surgery or inpatient Tx. It is understood by the patient/guardian that if the Sx's persist or worsen they need to return immediately for re-evaluation. 06/21 16:16 Order name: CBC with Diff; Complete Time: 20:05 06/21 16:16 Order name: CMP; Complete Time: 20:05 06/21 16:16 Order name: Lipase; Complete Time: 20:05 06/21 16:16 Order name: Urinalysis w/ reflexes; Complete Time: 20:05 06/21 16:16 Order name: Lactate w/ 2H reflex if indic.; Complete Time: 20:05 06/21 17:05 Order name: CT Abd/Pelvis - IV Contrast Only; Complete Time: 20:05 06/21 16:16 Order name: IV Saline Lock; Complete Time: 18:13 06/21 16:16 Order name: Labs collected and sent; Complete Time: 18:13 06/21 20:11 Order name: PO challenge; Complete Time: 20:22 cp Administered Medications: 18:44 Drug: Ondansetron IVP 4 mg IVP once; over 2 minutes Route: IVP; Site: left forearm; ll1 20:14 Follow up: Response: No adverse reaction; Nausea is decreased al5 18:44 Drug: NS 0.9% IV 500 ml IV at bolus once; to be given as a bolus over 60 minutes Route: ll1 IV; Rate: bolus; Site: left forearm; 21:18 Follow up: Response: No adverse reaction; IV Status: Completed infusion; IV Intake: tm6 500ml 18:45 Drug: morphine IVP or IV 4 mg IVP once over 4 mins {Note: RASS 0, pain 7/10.} Route: ll1 IVP; Infused Over: 4 mins; Site: left forearm; 20:14 Follow up: Response: No adverse reaction; Pain is decreased al5 20:22 Drug: metroNIDAZOLE IVPB 500 mg 100 ml IVPB once over 30 mins Volume: 100 ml; Route: al5 IVPB; Infused Over: 30 mins; Site: left antecubital; 21:13 Follow up: Response: No adverse reaction; IV Status: Completed infusion; IV Intake: al5 100ml 20:22 Drug: Ciprofloxacin PO 500 mg PO once Route: PO; al5 20:36 Follow up: Response: No adverse reaction al5 Disposition Summary: 06/21/24 20:30 Discharge Ordered Notes: Location: Home cp Problem: new cp Symptoms: have improved cp Condition: Stable cp Diagnosis - Diverticulitis of large intestine without perforation or abscess without bleeding cp Followup: cp - With: Private Physician - When: 2 - 3 days - Reason: Recheck today's complaints Discharge Instructions: - Discharge Summary Sheet cp - High-Fiber Eating Plan cp - Diverticulitis cp Forms: - Medication Reconciliation Form cp - Antibiotic Education cp - Prescription Opioid Use cp - Patient Portal Instructions cp - Leadership Thank You Letter cp Prescriptions: - Zofran 4 mg Oral Tablet - take 1 tablet ORAL route every 12 hours As needed; 20 tablet; Refills: 0, cp Product Selection Permitted - Cipro 500 mg Oral Tablet - take 1 tablet ORAL route every 12 hours for 7 days; 14 tablet; Refills: 0, cp Product Selection Permitted - Metronidazole 500 mg Oral Tablet - take 1 tablet ORAL route every 8 hours; 30 tablet; Refills: 0, Product cp Selection Permitted - dicyclomine 20 mg Oral tablet - take 1 tablet ORAL route 4 times per day; 30 tablet; Refills: 0, Product cp Selection Permitted Signatures: Dispatcher [employer] JAVIMS Sweta Whitlock RN RN aa5 Edenilson Fine PA PA cp Ashlyn Arias RN RN ll1 Mony Goyal RN RN al5 Jonny Cohn RN tm6 Corrections: (The following items were deleted from the chart) 16:15 16:13 PSHx: Jose Cruz Rotator cuff; aa5 aa5 16:17 16:16 CBC+H.LAB.BRZ ordered. EDMS EDMS 16:17 16:16 COMPREHENSIVE METABOLIC PANEL+C.LAB.BRZ ordered. EDMS EDMS 16:17 16:16 LIPASE+C.LAB.BRZ ordered. EDMS EDMS 16:17 16:16 Urinalysis+U.LAB.BRZ ordered. EDMS EDMS 16:17 16:16 LACTATE+C.LAB.BRZ ordered. EDMS EDMS
[2024-06-21 22:04] VITALS: O2SAT 94
[2024-06-21 22:06] VITALS: BP 137/75; TEMP 99.1
== END 2024-06-21 21:17 | disposition home or self-care (01) ==
LOC: ER 15:40
DX: K57.32 Diverticulitis of large intestine without perforation or abscess without bleeding (principal); I10 Essential (primary) hypertension; E78.5 Hyperlipidemia, unspecified; Z72.0 Tobacco use
CPT/HCPCS: 96365; 96361; 85025; 81001; 36415; 83605; 83690; 80053; 74177; 96375; 99284; Q9967; J2405; J7040